=== PATIENT | male | born 1940 | race African-American/Black ===

== ENCOUNTER 2018-03-01 16:02 | Emergency (ER) | payer MEDICARE, OTHER ==
--- NOTE | 2018-03-01 18:23 | RAD ---
RIGHT HIP TWO VIEWS: 03/01/18 HISTORY: Right hip pain. FINDINGS: There is moderate joint space narrowing and prominent osteophytosis and subchondral sclerosis. No acu te fracture, dislocation or aggressive osseous erosions. Femoral head contour is maintained. IMPRESSION: Prominent osteoarthritic changes right hip. POS: [facility]IRIAM
[2018-03-01] MEDS ORDERED: Dexamethasone 4 mg/ml Vial ONE (19:23)
== END 2018-03-01 19:28 | disposition home or self-care (01) ==
LOC: ERS 16:02
DX: M25.551 Pain in right hip (principal); I25.10 Atherosclerotic heart disease of native coronary artery without angina pectoris; I10 Essential (primary) hypertension; Z79.899 Other long term (current) drug therapy
CPT/HCPCS: 96372; J1100